=== PATIENT | male | born 1990 | race Caucasian/White ===

== ENCOUNTER 2024-02-19 08:20 | Outpatient (CLI) | payer BC ==
[2024-02-19 09:46] LABS: #Basophils 0.02 10x3/uL (0.0-0.2); #Eosinphils 0.06 10x3/uL (0.0-0.5); #Monocytes 0.71 10x3/uL (0.0-1.1); %Basophils 0.2 % (0.0-2.0); %Eosinophils 0.6 % (0.0-6.0); %Lymphocytes 12.2 % (18.0-47.0); %Monocytes 7.3 % (0.0-10.0); %Neutrophils 79.5 % (40.0-75.0); Hematocrit 41.7 % (38.8-50.0); Hemoglobin 15.1 g/dL (13.5-17.5); Mean Corpuscular HGB CONC 36.2 g/dL (32.0-36.0); Mean Corpuscular Volume 88.3 fL (81.2-95.1); Platelet Count 146 10x3/uL (150-450); Red Blood Cell (RBC) Count 4.72 10x6/uL (4.32-5.72); White Blood Cell (WBC) Count 9.7 10x3/uL (3.5-10.5)
[2024-02-19 10:29] LABS: Anion Gap 13 mmol/L (10-20); BUN (Urea Nitrogen) 14 mg/dL (8.9-20.6); Calc. Creatinine Clearance 0 mL/min (70-130); Calcium 9.5 mg/dL (7.8-10.44); Carbon Dioxide 26 mmol/L (22-29); Chloride 103 mmol/L (98-107); Estimated GFR 100; Glucose 105 mg/dL (70-105); Potassium 3.7 mmol/L (3.5-5.1); Sodium 138 mmol/L (136-145)
== END 2024-02-19 08:21 | disposition home or self-care (01) ==
LOC: LABBT 08:20
PROVIDERS: ATTEND Surgery
DX: Z01.812 Encounter for preprocedural laboratory examination (principal); K60.3 Anal fistula
CPT/HCPCS: 80048; 85025

== ENCOUNTER 2024-02-21 07:13 | Day surgery (SDC) | payer BC ==
[2024-02-19 08:38] VITALS: BMI 25.9
[2024-02-21] MEDS ORDERED: Midazolam HCl 2 mg/2 ml Vial ONE (08:02)
[2024-02-21] MEDS ORDERED: fentaNYL 50 mcg/mL 1 mL Vial ONE ×3 (08:04→10:38)
[2024-02-21] MEDS ORDERED: PROPOFOL 20 ML ONE (08:04)
[2024-02-21] MEDS ORDERED: Lidocaine 1% PF 5 ML VIAL ONE (08:04)
[2024-02-21] MEDS ORDERED: EPINEPHrine 1 MG/ML VIAL ONE (09:03)
[2024-02-21] MEDS ORDERED: Bupivacaine 0.25% HCL 30 ML VIAL ONE (09:03)
[2024-02-21] MEDS ORDERED: CEFAZOLIN 2 GM VIAL ONE (09:23)
[2024-02-21] MEDS ORDERED: Sodium Chloride 0.9% 100 ML ONE (09:23)
[2024-02-21] MEDS ORDERED: Ondansetron PF 4 MG/2 ML Vial ONE (09:42)
[2024-02-21] MEDS ORDERED: Dexamethasone 20 MG/5 ML VIAL ONE (09:42)
== END 2024-02-21 11:30 | disposition home or self-care (01) ==
LOC: SDC 07:13
PROVIDERS: ATTEND Surgery
PROC: 0D9Q00Z Drainage of Anus with Drainage Device, Open Approach (ICD-10-PCS; principal; 2024-02-21)
DX: K60.3 Anal fistula (principal)
CPT/HCPCS: J0171; J0665; J1100; J2250; J2405; J2704; J3010